=== PATIENT | female | born 1960 | race Caucasian/White ===

== ENCOUNTER → 2020-11-07 16:29 | Outpatient (CLI) | payer BC, SELFPAY ==
--- NOTE | ~2020-11-07 | MM_ITS ---
EXAMINATION: MM screening [facility] BI w ita HISTORY: Screening TECHNIQUE: Craniocaudal and mediolateral oblique 3-D tomosynthesis images were obtained and synthetic 2-D images were generated. CAD analysis was submitted and interpreted. COMPARISON: Comparison to multiple prior studies sequentially, with oldest reviewed study dated 05/09. BREAST PARENCHYMAL COMPOSITION: The breasts are heterogeneously dense, which may obscure small masses . FINDINGS: There is no evidence of suspicious mass, calcification, or architectural distortion to sugg est malignancy in either breast. There has been no suspicious interval change. IMPRESSION: 1. No mammographic evidence of malignancy. 2. Recommend routine screening mammography in one year. BI-RADS Category 1: Negative Reviewed, dictated and finalized at location A.
== END ==
PROVIDERS: Visit Provider Obstetrics & Gynecology
DX: Z12.31 Encounter for screening mammogram for malignant neoplasm of breast (principal)
CPT/HCPCS: 77063; 77067

== ENCOUNTER → 2022-05-09 10:38 | Outpatient (CLI) | payer BC, SELFPAY ==
--- NOTE | ~2022-05-09 | MM_ITS ---
EXAMINATION: MM screening [facility] BI w ita HISTORY: Screening mammogram TECHNIQUE: Craniocaudal and mediolateral oblique 3-D tomosynthesis images were obtained and synthetic 2-D images were generated. CAD analysis was submitted and interpreted. COMPARISON: 11/07/2020, 03/10/2018, 12/17/2016 BREAST PARENCHYMAL COMPOSITION: There are scattered areas of fibroglandular density. FINDINGS: RIGHT BREAST: No suspicious mass, calcification, or architectural distortion are identified to sugges t malignancy. There has been no suspicious interval change. LEFT BREAST: There is a possible mass in the middle/anterior third of the outer breast best appreciat ed 5.5 cm from the nipple on the craniocaudal view. IMPRESSION: 1. Possible left breast mass. 2. Additional mammographic views and possible breast ultrasound are recommended. BI-RADS Category 0: Incomplete: Needs additional imaging evaluation. Reviewed, dictated and finalized at location A. MAIL EDITOR IMPRESSION: 1. Possible left breast mass. 2. Additional mammographic views and possible breast ultrasound are recommended . BI-RADS Category 0: Incomplete: Needs additional imaging evaluation.
== END ==
PROVIDERS: PCP Internal Medicine; Visit Provider Obstetrics & Gynecology
DX: Z12.31 Encounter for screening mammogram for malignant neoplasm of breast (principal); R92.8 Other abnormal and inconclusive findings on diagnostic imaging of breast
CPT/HCPCS: 77063; 77067

== ENCOUNTER → 2022-06-13 07:46 | Outpatient (CLI) | payer BC, SELFPAY ==
--- NOTE | ~2022-06-13 | MMUS_ITS ---
EXAMINATION: MM diagnostic kaylie LT w ita, US breast LT limited HISTORY: Possible left breast mass screening TECHNIQUE: Additional 3-D tomosynthesis images of the left breast were performed and synthetic 2-D im ages were generated. CAD analysis was submitted and interpreted. High resolution limited left breast ultrasound was performed. COMPARISON: 05/09/2020, 11/08/2019, 03/10/2019, 12/17/2016 FINDINGS: MAMMOGRAPHIC FINDINGS: There is a persistent 3 mm asymmetry in the middle/anterior third outer breast 5 cm from the cranioca udal view at approximately 9:00. An additional asymmetry seen in the posterior outer breast 10 cm fro m the nipple on the craniocaudal view at approximately 3:00. ULTRASOUND: There is an 11 mm x 8 mm oval, circumscribed, parallel, hypoechoic mass with no posterior features or internal vascularity at the 2:00 location 10 cm from the nipple. There is a 3 mm oval, circumscribed , parallel, hypoechoic mass with no posterior features or internal vascularity at the 4:00 location 3 cm from the nipple. IMPRESSION: 1. Indeterminate sonographically detected mass in the upper outer quadrant breast at the 2:00 locatio n and probably benign mass at the 4:00 location. 2. Ultrasound-guided biopsy of the mass at the 2:00 location is recommended and follow-up diagnostic mammogram and ultrasound in six months are recommended for the mass at the 4:00 location. BI-RADS category 4, suspicious findings. Reviewed, dictated and finalized at location A. [facility] [employer] IMPRESSION: 1. Indeterminate sonographically detected mass in the upper outer quadrant [address] at the 2:00 location and probably benign mass at the 4:00 location. 2. Ultrasound-guided biopsy of the mass at the 2:00 location is recommended and follow-up diagnostic mammogram and ultrasound in six months are recommended fo r the mass at the 4:00 location. BI-RADS category 4, suspicious findings.
== END ==
PROVIDERS: PCP Internal Medicine; Visit Provider Obstetrics & Gynecology
DX: R92.8 Other abnormal and inconclusive findings on diagnostic imaging of breast (principal)
CPT/HCPCS: 76642; 77061; 77065; G0279

== ENCOUNTER 2025-03-09 14:10 | Outpatient (CLI) | payer BC, SELFPAY ==
--- NOTE | ~2025-03-09 | MM_ITS ---
EXAMINATION: MM screening [facility] BI w ita HISTORY: Screening TECHNIQUE: Craniocaudal and mediolateral oblique 3-D tomosynthesis images were obtained and synthetic 2-D images were generated. CAD analysis was submitted and interpreted. COMPARISON: Comparison to multiple prior studies sequentially, with oldest reviewed study dated 12/11/2015. BREAST PARENCHYMAL COMPOSITION: Not dense: There are scattered areas of fibroglandular density. FINDINGS: There is no evidence of suspicious mass, calcification, or architectural distortion to suggest malignancy in either breast. There has been no suspicious interval change. IMPRESSION: 1. No mammographic evidence of malignancy. 2. Recommend routine screening mammography in one year. BI-RADS Category 1: Negative Reviewed, dictated and finalized at location C.
== END 2025-03-09 14:11 | disposition home or self-care (01) ==
LOC: MICIMG 14:11
PROVIDERS: PCP Internal Medicine; Visit Provider Obstetrics & Gynecology
DX: Z12.31 Encounter for screening mammogram for malignant neoplasm of breast (principal)
CPT/HCPCS: 77063; 77067